=== PATIENT | male | born 1955 | race African-American/Black ===

== ENCOUNTER 2022-10-29 03:15 | Inpatient (IN) | payer MEDICARE, MEDICAID ==
[~2022-10-29] VITALS: Ht 185.4 cm; Wt 117.9 kg
[~2022-10-29 03:15] MED LIST: FURO-152 PO; GLIM2TAB30 PO; HYDR-4009 PO
[2022-10-29] MEDS ORDERED: CLINDAMYCIN 600 MG in DEXTROSE 5% WATER 50 ML IV ONE (06:45)
[2022-10-29] MEDS ORDERED: CLINDAMYCIN 600MG PREMIX 50 ML IV NR (07:15)
[2022-10-29 08:20] LABS: BASOPHILS % 0.3 % (0.0-2.0); EOSINOPHILS % 3.6 % (0.0-5.0); HEMATOCRIT. 26.6 % (42.0-52.0); HEMOGLOBIN. 8.5 g/dL (14.0-18.0); LYMPHOCYTES % 20.7 % (20.0-50.0); MEAN CORPUSCULAR HEMOGLOBIN 28.2 pg (28.0-32.0); MEAN CORPUSCULAR VOLUME 88.2 fL (80.0-94.0); MEAN PLATELET VOLUME 7.2 fl (7.4-10.4); MONOCYTES % 7.7 % (2.0-8.0); NEUTROPHILS % 67.7 % (40.0-76.0); PLATELET 414 x1000/uL (130-400); RED BLOOD CELL COUNT 3.02 mill/uL (4.7-6.1); RED CELL DISTRIBUTION WIDTH 16.6 % (11.6-14.6)
[2022-10-29 08:28] LABS: CHLORIDE 105 mEq/L (98-107)
[2022-10-29 08:30] LABS: INR 1.1; PROTHROMBIN TIME 12.1 sec (9.6-11.0)
[2022-10-29 08:55] LABS: CLARITY URINE TURBID (CLEAR); COLOR URINE DARK YELLOW (YELLOW); KETONES URINE NEGATIVE (NEGATIVE); LEUKOCYTE ESTERASE URINE 3+ (NEGATIVE); NITRITE URINE POSITIVE (NEGATIVE); OCCULT BLOOD URINE 3+ (NEGATIVE); PH URINE 5.5 (4.5-8.0); PROTEIN URINE 2+ (NEGATIVE); SPECIFIC GRAVITY URINE 1.015 (1.005-1.030)
[2022-10-29] MEDS ORDERED: HYDROCODONE/ACETAMINOPHEN 5/325MG TABLET PO PRN (09:30)
[2022-10-29] MEDS ORDERED: NALOXONE HCL 0.4MG/ML VIAL IV PRN (09:30)
[2022-10-29 14:00] VITALS: BP 145/84
[2022-10-29 16:00] VITALS: BP 110/53
[2022-10-29] MEDS ORDERED: POTASSIUM CHLORIDE 20MEQ TABLET SR PO NR (16:00)
[2022-10-29] MEDS ORDERED: ACETAMINOPHEN 325MG TABLET PO PRN ×2 (16:00)
[2022-10-29] MEDS ORDERED: DOCUSATE SODIUM 100MG CAPSULE PO PRN (16:00)
[2022-10-29] MEDS ORDERED: IPRATROPIUM/ALBUTEROL 0.5-3(2.5)MG/3ML NEB HHN PRN (16:00)
[2022-10-29] MEDS ORDERED: VANCOMYCIN 1G PREMIX 200 ML IV SCH (16:00)
[2022-10-29] MEDS ORDERED: CLONIDINE 0.1MG TABLET PO PRN (16:00)
[2022-10-29] MEDS: AMLODIPINE 10MG TABLET PO SCH (16:00)
[2022-10-29] MEDS ORDERED: HYDROCODONE/ACETAMINOPHEN 7.5/325MG TABLET PO PRN (16:00)
[2022-10-29] MEDS ORDERED: ONDANSETRON HCL 4MG/2ML INJ IV PRN (16:00)
[2022-10-29] MEDS ORDERED: GUAIFENESIN 200MG/10ML SUGAR FREE UDC PO PRN (16:00)
[2022-10-29] MEDS: HYDROCODONE/ACETAMINOPHEN 10/325MG TABLET PO PRN (16:42)
[2022-10-29] MEDS ORDERED: VANCOMYCIN 1500MG in DEXTROSE 5% WATER 250ML IV NR (18:00)
[2022-10-29] MEDS: ENOXAPARIN 30MG/0.3ML SYR SUBCUT SCH (18:00)
[2022-10-29 20:00] VITALS: BP 113/61
[2022-10-29] MEDS ORDERED: DEXTROSE 50% WATER 50ML SYRINGE IV PRN (20:15)
[2022-10-29] MEDS: FAMOTIDINE 20MG TABLET PO SCH (21:00)
[2022-10-29] MEDS: INSULIN LISPRO 100 UNITS/ML SUBCUT SCH (21:00)
[2022-10-29] MEDS: PIPERACILLIN/TAZOBACTAM 3.375 G in DEXTROSE 5% WATER 50 ML IV SCH (21:03)
[2022-10-29] MEDS: BLOOD SUGAR DIAGNOSTIC STRIP TEST SCH (21:04)
[2022-10-30] VITALS: BP 109/61
[2022-10-30] MEDS: PIPERACILLIN/TAZOBACTAM 3.375 G in DEXTROSE 5% WATER 50 ML IV SCH ×4 (00:01→22:00)
[2022-10-30] MEDS: HYDROCODONE/ACETAMINOPHEN 10/325MG TABLET PO PRN ×5 (01:18→22:05)
[2022-10-30 04:00] VITALS: BP 112/58
[2022-10-30] MEDS: ENOXAPARIN 30MG/0.3ML SYR SUBCUT SCH ×3 (06:00→17:35)
[2022-10-30 07:17] LABS: BASOPHILS % 0.3 % (0.0-2.0); HEMATOCRIT. 23.4 % (42.0-52.0); HEMOGLOBIN. 7.9 g/dL (14.0-18.0); MEAN CORPUSCULAR HEMOGLOBIN 29.1 pg (28.0-32.0); MEAN CORPUSCULAR VOLUME 85.8 fL (80.0-94.0); MEAN PLATELET VOLUME 7.4 fl (7.4-10.4); MONOCYTES % 8.2 % (2.0-8.0); NEUTROPHILS % 65.5 % (40.0-76.0); PLATELET 363 x1000/uL (130-400); RED BLOOD CELL COUNT 2.73 mill/uL (4.7-6.1); RED CELL DISTRIBUTION WIDTH 16.5 % (11.6-14.6)
[2022-10-30 07:31] LABS: CHLORIDE 106 mEq/L (98-107)
[2022-10-30 07:50] LABS: CREATINE KINASE 564 IU/L (39-308); HDL CHOLESTEROL 42 mg/dL (40-59); LDL CHOLESTEROL 75 mg/dL (5-100); T4 FREE 1.67 ng/dL (0.76-1.46)
[2022-10-30] MEDS: INSULIN LISPRO 100 UNITS/ML SUBCUT SCH ×4 (07:50→21:00)
[2022-10-30 08:00] VITALS: BP 89/53
[2022-10-30] MEDS ORDERED: VANCOMYCIN 750MG PREMIX 150 ML IV SCH (09:00)
[2022-10-30] MEDS: FAMOTIDINE 20MG TABLET PO SCH ×3 (09:00→21:22)
[2022-10-30] MEDS: AMLODIPINE 10MG TABLET PO SCH (09:00)
[2022-10-30] MEDS: BLOOD SUGAR DIAGNOSTIC STRIP TEST SCH ×4 (11:39→21:22)
[2022-10-30] MEDS: VANCOMYCIN 1G PREMIX 200 ML IV SCH (17:58)
[2022-10-31] MEDS: VANCOMYCIN 1G PREMIX 200 ML IV SCH ×2 (06:00→17:59)
[2022-10-31] MEDS: PIPERACILLIN/TAZOBACTAM 3.375 G in DEXTROSE 5% WATER 50 ML IV SCH ×2 (06:00→14:00)
[2022-10-31] MEDS: ENOXAPARIN 30MG/0.3ML SYR SUBCUT SCH ×2 (06:00→17:59)
[2022-10-31] MEDS ORDERED: BISACODYL 10MG SUPP PR PRN (06:30)
[2022-10-31] MEDS: HYDROCODONE/ACETAMINOPHEN 10/325MG TABLET PO PRN ×3 (06:45→13:48)
[2022-10-31] MEDS: BLOOD SUGAR DIAGNOSTIC STRIP TEST SCH ×3 (06:52→17:58)
[2022-10-31] MEDS: INSULIN LISPRO 100 UNITS/ML SUBCUT SCH ×3 (07:50→17:50)
[2022-10-31] MEDS: FAMOTIDINE 20MG TABLET PO SCH (09:00)
[2022-10-31] MEDS: AMLODIPINE 10MG TABLET PO SCH (09:00)
[2022-10-31] MEDS ORDERED: DOCUSATE SODIUM 100MG CAPSULE PO PRN (10:15)
[2022-10-31] MEDS ORDERED: LACTULOSE 20G/30ML UDC PO PRN (11:30)
[2022-10-31 12:00] VITALS: BP 120/68
[2022-10-31] MEDS ORDERED: LACTULOSE 20G/30ML UDC PO SCH (13:30)
[2022-10-31 16:00] VITALS: BP 152/69
[2022-10-31 17:20] VITALS: BP 152/69
[2022-10-31] MEDS ORDERED: ONDA4TAB50 MT (22:40)
[2022-10-31] MEDS ORDERED: TOPUD MT (22:40)
== END 2022-10-31 18:05 | disposition home health service (06) | DRG 871 ==
LOC: ER 03:15 → 6EST 06:42
PROVIDERS: ADMIT Hospitalist; ATTEND Hospitalist
DX: A41.9 Sepsis, unspecified organism (principal); E43 Unspecified severe protein-calorie malnutrition; G82.50 Quadriplegia, unspecified; L03.115 Cellulitis of right lower limb; N39.0 Urinary tract infection, site not specified; M86.8X6 Other osteomyelitis, lower leg; L03.116 Cellulitis of left lower limb; E11.69 Type 2 diabetes mellitus with other specified complication; Z60.2 Problems related to living alone; E11.51 Type 2 diabetes mellitus with diabetic peripheral angiopathy without gangrene; D64.9 Anemia, unspecified; I10 Essential (primary) hypertension; D75.839 Thrombocytosis, unspecified; I87.2 Venous insufficiency (chronic) (peripheral); L89.899 Pressure ulcer of other site, unspecified stage; E66.01 Morbid (severe) obesity due to excess calories; E87.6 Hypokalemia; Z68.39 Body mass index [BMI] 39.0-39.9, adult; Z74.01 Bed confinement status; Z79.899 Other long term (current) drug therapy
CPT/HCPCS: 36415; 71045; 80053; 80061; 81003; 82550; 82962; 83036; 84439; 84443; 85025; 87077; 87186; 93005; 97162; 99285; C1893; J1650; J2543; J3370; J3490; J7060

== ENCOUNTER 2022-10-31 19:30 | Emergency (ER) | payer MEDICARE, MEDICAID ==
[~2022-10-31] VITALS: Ht 185.4 cm; Wt 118.0 kg
[2022-10-31] MEDS ORDERED: ASPIRIN 325MG EC TABLET PO ONE (20:30)
[2022-10-31] MEDS ORDERED: NITROGLYCERIN 0.4MG/HR PATCH TOP ONE (20:30)
[2022-10-31] MEDS ORDERED: ACETAMINOPHEN 325MG TABLET PO ONE (20:30)
[2022-10-31] MEDS ORDERED: ONDA4TAB50 MT (22:40)
[2022-10-31] MEDS ORDERED: TOPUD MT (22:40)
[2022-11-02] MEDS ORDERED: ACETAMINOPHEN WITH CODEINE 300/30MG TABLET PO ONE (01:30)
[2022-11-02] MEDS ORDERED: ACETAMINOPHEN WITH CODEINE 300/30MG TABLET PO NR (02:00)
[2022-11-02 15:10] VITALS: BP 156/80
== END 2022-11-02 15:43 | disposition home or self-care (01) ==
LOC: ER 19:30
DX: R51.9 Headache, unspecified (principal); E11.9 Type 2 diabetes mellitus without complications
CPT/HCPCS: 71045; 99284

== ENCOUNTER 2022-12-10 08:09 | Inpatient (IN) | payer MEDICARE, MEDICAID ==
[~2022-12-10] VITALS: Ht 182.9 cm; Wt 119.3 kg
[~2022-12-10 08:09] MED LIST changes: +ONDA4TAB50 MT; +TOPUD MT
[2022-12-10] MEDS ORDERED: CEFTRIAXONE 1GM PREMIX 50 ML IV ONE (10:15)
[2022-12-10 10:32] LABS: CLARITY URINE TURBID (CLEAR); COLOR URINE ORANGE (YELLOW); KETONES URINE NEGATIVE (NEGATIVE); LEUKOCYTE ESTERASE URINE 3+ (NEGATIVE); NITRITE URINE NEGATIVE (NEGATIVE); OCCULT BLOOD URINE 3+ (NEGATIVE); PROTEIN URINE 4+ (NEGATIVE); SPECIFIC GRAVITY URINE 1.035 (1.005-1.030); UROBILINOGEN URINE 0.2 E.U./dL (0.2-1.0)
[2022-12-10 10:50] LABS: BASOPHILS % 0.2 % (0.0-2.0); HEMATOCRIT. 24.1 % (42.0-52.0); LYMPHOCYTES % 7.2 % (20.0-50.0); MEAN CORPUSCULAR HEMOGLOBIN 28.2 pg (28.0-32.0); MEAN CORPUSCULAR VOLUME 84.6 fL (80.0-94.0); MEAN PLATELET VOLUME 8.2 fl (7.4-10.4); NEUTROPHILS % 85.6 % (40.0-76.0); PLATELET 500 x1000/uL (130-400); RED BLOOD CELL COUNT 2.85 mill/uL (4.7-6.1); RED CELL DISTRIBUTION WIDTH 17.1 % (11.6-14.6)
[2022-12-10 11:00] LABS: INR 1.2; PROTHROMBIN TIME 12.4 sec (9.6-11.0)
[2022-12-10] MEDS ORDERED: MORPHINE SULFATE 4 MG/ML CPJ (NOT FOR IM USE) IV ONE (11:00)
[2022-12-10] MEDS ORDERED: HYDROCODONE/ACETAMINOPHEN 10/325MG TABLET PO ONE (12:15)
[2022-12-10 13:30] LABS: CHLORIDE 94 mEq/L (98-107)
[2022-12-10] MEDS ORDERED: CLONIDINE 0.1MG TABLET PO PRN (13:30)
[2022-12-10] MEDS ORDERED: IPRATROPIUM/ALBUTEROL 0.5-3(2.5)MG/3ML NEB HHN PRN (13:30)
[2022-12-10] MEDS ORDERED: DOCUSATE SODIUM 100MG CAPSULE PO PRN (13:30)
[2022-12-10] MEDS ORDERED: ONDANSETRON HCL 4MG/2ML INJ IV PRN (13:30)
[2022-12-10] MEDS ORDERED: HYDROCODONE/ACETAMINOPHEN 5/325MG TABLET PO PRN (13:30)
[2022-12-10] MEDS ORDERED: ACETAMINOPHEN 650MG/20.3ML UDC GT PRN (13:30)
[2022-12-10] MEDS ORDERED: GUAIFENESIN 200MG/10ML SUGAR FREE UDC PO PRN (13:30)
[2022-12-10] MEDS ORDERED: ACETAMINOPHEN 325MG TABLET PO PRN (13:30)
[2022-12-10] MEDS ORDERED: DEXTROSE 50% WATER 50ML SYRINGE IV PRN (13:30)
[2022-12-10] MEDS ORDERED: NALOXONE HCL 0.4MG/ML VIAL IV PRN (13:45)
[2022-12-10] MEDS ORDERED: PIPERACILLIN/TAZ 3.375G PREMIX 50 ML IV NR (13:45)
[2022-12-10] MEDS ORDERED: INSULIN REGULAR (HUMULIN R) 300UNITS/3ML VIAL IV NR (14:00)
[2022-12-10] MEDS ORDERED: DEXTROSE 50% WATER 50ML SYRINGE IV NR (14:00)
[2022-12-10] MEDS ORDERED: VANCOMYCIN 1G PREMIX 200 ML IV SCH (14:00)
[2022-12-10] MEDS ORDERED: CALCIUM GLUCONATE 100MG/ML 10ML VIAL IV NR (14:00)
[2022-12-10] MEDS ORDERED: SODIUM CHLORIDE 0.9% 1,000 ML IV ONE (14:00)
[2022-12-10] MEDS ORDERED: SODIUM BICARBONATE 8.4% 1 MEQ/ML 50ML SYR IV NR (14:15)
[2022-12-10 15:18] LABS: CREATINE KINASE 31 IU/L (39-308)
[2022-12-10] MEDS: INSULIN LISPRO 100 UNITS/ML SUBCUT SCH ×2 (18:20→21:00)
[2022-12-10] MEDS: BLOOD SUGAR DIAGNOSTIC STRIP TEST SCH ×2 (18:40→21:00)
[2022-12-10 20:00] VITALS: BP 116/75
[2022-12-10] MEDS ORDERED: PIPERACILLIN/TAZOBACTAM 3.375 G in DEXTROSE 5% WATER 50 ML IV SCH (22:00)
[2022-12-10] MEDS: HYDROCODONE/ACETAMINOPHEN 10/325MG TABLET PO PRN (22:14)
[2022-12-10 22:40] VITALS: BP 116/75
[2022-12-11] VITALS: BP 142/67
[2022-12-11] MEDS: PIPERACILLIN/TAZOBACTAM 3.375 G in DEXTROSE 5% WATER 50 ML IV SCH ×3 (03:07→21:55)
[2022-12-11] MEDS: HYDROCODONE/ACETAMINOPHEN 10/325MG TABLET PO PRN ×3 (05:42→23:30)
[2022-12-11] MEDS: BLOOD SUGAR DIAGNOSTIC STRIP TEST SCH ×4 (05:49→21:54)
[2022-12-11] MEDS: INSULIN LISPRO 100 UNITS/ML SUBCUT SCH ×4 (05:50→21:00)
[2022-12-11] MEDS: PANTOPRAZOLE 40MG DR TABLET PO SCH (06:40)
[2022-12-11 08:00] VITALS: BP 92/45
[2022-12-11] MEDS ORDERED: VANCOMYCIN 1G PREMIX 200 ML IV NR (11:00)
[2022-12-11 12:00] VITALS: BP 110/55
[2022-12-11 16:00] VITALS: BP 103/49
[2022-12-11 20:00] VITALS: BP 100/50
[2022-12-12] VITALS (7 sets, daily range): BP systolic 90–111; BP diastolic 51–62
[2022-12-12] MEDS: BLOOD SUGAR DIAGNOSTIC STRIP TEST SCH ×4 (05:50→22:31)
[2022-12-12] MEDS: PANTOPRAZOLE 40MG DR TABLET PO SCH (05:50)
[2022-12-12] MEDS: INSULIN LISPRO 100 UNITS/ML SUBCUT SCH ×4 (05:50→22:30)
[2022-12-12] MEDS: PIPERACILLIN/TAZOBACTAM 3.375 G in DEXTROSE 5% WATER 50 ML IV SCH ×3 (05:50→22:21)
[2022-12-12] MEDS: HYDROCODONE/ACETAMINOPHEN 10/325MG TABLET PO PRN ×2 (07:09→23:27)
[2022-12-12 07:46] LABS: BASOPHILS % 0.4 % (0.0-2.0); EOSINOPHILS % 2.7 % (0.0-5.0); LYMPHOCYTES % 20.1 % (20.0-50.0); MEAN CORPUSCULAR VOLUME 82.7 fL (80.0-94.0); MONOCYTES % 8.7 % (2.0-8.0); NEUTROPHILS % 68.1 % (40.0-76.0); PLATELET 419 x1000/uL (130-400); RED BLOOD CELL COUNT 2.33 mill/uL (4.7-6.1); RED CELL DISTRIBUTION WIDTH 16.6 % (11.6-14.6)
[2022-12-12 07:51] LABS: CHLORIDE 100 mEq/L (98-107)
[2022-12-12 08:10] LABS: HEMOGLOBIN. 6.5 g/dL (14.0-18.0)
[2022-12-12 08:11] LABS: HEMATOCRIT. 19.3 % (42.0-52.0)
[2022-12-12] MEDS: ASCORBIC ACID 250 MG TABLET PO SCH (09:56)
[2022-12-12] MEDS: ZINC SULFATE 220 MG ( 50 ) CAPSULE PO SCH (09:56)
[2022-12-12] MEDS: VANCOMYCIN 1.25GM PMX (XELLIA) 250 ML IV SCH (13:56)
[2022-12-12] MEDS ORDERED: LIDOCAINE HCL 1% 30ML VIAL (10MG/ML) ONE (14:02)
[2022-12-13] VITALS: BP 129/60
[2022-12-13] MEDS: VANCOMYCIN 1.25GM PMX (XELLIA) 250 ML IV SCH (00:56)
[2022-12-13 04:00] VITALS: BP 116/57
[2022-12-13] MEDS: INSULIN LISPRO 100 UNITS/ML SUBCUT SCH ×4 (06:05→21:00)
[2022-12-13] MEDS: BLOOD SUGAR DIAGNOSTIC STRIP TEST SCH ×4 (06:05→21:32)
[2022-12-13] MEDS: PIPERACILLIN/TAZOBACTAM 3.375 G in DEXTROSE 5% WATER 50 ML IV SCH ×3 (06:05→21:34)
[2022-12-13] MEDS: HYDROCODONE/ACETAMINOPHEN 10/325MG TABLET PO PRN ×2 (06:39→21:35)
[2022-12-13] MEDS: PANTOPRAZOLE 40MG DR TABLET PO SCH (06:40)
[2022-12-13 06:49] LABS: MEAN CORPUSCULAR HEMOGLOBIN 27.9 pg (28.0-32.0); MEAN CORPUSCULAR VOLUME 83.5 fL (80.0-94.0); PLATELET 440 x1000/uL (130-400); RED CELL DISTRIBUTION WIDTH 17.2 % (11.6-14.6)
[2022-12-13 06:59] LABS: HEMOGLOBIN 6.4 g/dL (14.0-18.0)
[2022-12-13 07:00] LABS: HEMATOCRIT 19.2 % (42.0-52.0)
[2022-12-13 07:16] LABS: CHLORIDE 101 mEq/L (98-107)
[2022-12-13 07:22] LABS: PHOSPHORUS 2.5 mg/dL (2.5-4.9)
[2022-12-13 08:00] VITALS: BP 126/73
[2022-12-13] MEDS: ASCORBIC ACID 250 MG TABLET PO SCH (09:00)
[2022-12-13] MEDS: ZINC SULFATE 220 MG ( 50 ) CAPSULE PO SCH (10:02)
[2022-12-13 12:00] VITALS: BP 130/70
[2022-12-13] MEDS: MAGNESIUM/ALUMINUM HYDROXIDE/SIMETHICONE 30ML UDC PO PRN (12:02)
[2022-12-13 16:00] VITALS: BP 124/58
[2022-12-13 20:00] VITALS: BP 105/59
[2022-12-14] VITALS (9 sets, daily range): BP systolic 96–148; BP diastolic 41–79
[2022-12-14] MEDS: HYDROCODONE/ACETAMINOPHEN 10/325MG TABLET PO PRN ×3 (01:37→17:50)
[2022-12-14] MEDS: BLOOD SUGAR DIAGNOSTIC STRIP TEST SCH ×4 (06:29→21:00)
[2022-12-14] MEDS: INSULIN LISPRO 100 UNITS/ML SUBCUT SCH ×3 (06:29→21:00)
[2022-12-14] MEDS: PANTOPRAZOLE 40MG DR TABLET PO SCH (07:04)
[2022-12-14] MEDS: PIPERACILLIN/TAZOBACTAM 3.375 G in DEXTROSE 5% WATER 50 ML IV SCH ×3 (07:04→22:00)
[2022-12-14] MEDS: ZINC SULFATE 220 MG ( 50 ) CAPSULE PO SCH (09:00)
[2022-12-14] MEDS: ASCORBIC ACID 250 MG TABLET PO SCH (09:47)
[2022-12-14 12:18] LABS: BASOPHILS % 0.4 % (0.0-2.0); EOSINOPHILS % 3.6 % (0.0-5.0); LYMPHOCYTES % 21.3 % (20.0-50.0); MEAN CORPUSCULAR HEMOGLOBIN 27.5 pg (28.0-32.0); MEAN CORPUSCULAR VOLUME 83.2 fL (80.0-94.0); MEAN PLATELET VOLUME 7.3 fl (7.4-10.4); NEUTROPHILS % 65.7 % (40.0-76.0); PLATELET 413 x1000/uL (130-400); RED CELL DISTRIBUTION WIDTH 16.4 % (11.6-14.6)
[2022-12-14 12:24] LABS: HEMATOCRIT. 19.1 % (42.0-52.0); HEMOGLOBIN. 6.3 g/dL (14.0-18.0)
[2022-12-14 12:26] LABS: CHLORIDE 102 mEq/L (98-107)
[2022-12-14] MEDS: MAGNESIUM/ALUMINUM HYDROXIDE/SIMETHICONE 30ML UDC PO PRN (17:50)
[2022-12-15] VITALS: BP 118/65
[2022-12-15 01:59] LABS: BASOPHILS % 0.6 % (0.0-2.0); EOSINOPHILS % 2.7 % (0.0-5.0); HEMOGLOBIN. 7.8 g/dL (14.0-18.0); MEAN CORPUSCULAR HEMOGLOBIN 27.6 pg (28.0-32.0); MEAN CORPUSCULAR VOLUME 84.9 fL (80.0-94.0); MEAN PLATELET VOLUME 7.4 fl (7.4-10.4); MONOCYTES % 7.4 % (2.0-8.0); NEUTROPHILS % 67.3 % (40.0-76.0); PLATELET 459 x1000/uL (130-400); RED BLOOD CELL COUNT 2.82 mill/uL (4.7-6.1); RED CELL DISTRIBUTION WIDTH 16.4 % (11.6-14.6)
[2022-12-15 02:06] LABS: INR 1.1; PROTHROMBIN TIME 11.9 sec (9.6-11.0)
[2022-12-15] MEDS: HYDROCODONE/ACETAMINOPHEN 10/325MG TABLET PO PRN (02:51)
[2022-12-15] MEDS: PIPERACILLIN/TAZOBACTAM 3.375 G in DEXTROSE 5% WATER 50 ML IV SCH ×2 (06:00→16:08)
[2022-12-15] MEDS: BLOOD SUGAR DIAGNOSTIC STRIP TEST SCH ×3 (06:40→16:40)
[2022-12-15] MEDS: PANTOPRAZOLE 40MG DR TABLET PO SCH (06:40)
[2022-12-15] MEDS: INSULIN LISPRO 100 UNITS/ML SUBCUT SCH ×3 (07:10→17:10)
[2022-12-15 08:00] VITALS: BP 115/70
[2022-12-15] MEDS: ZINC SULFATE 220 MG ( 50 ) CAPSULE PO SCH (09:00)
[2022-12-15] MEDS: ASCORBIC ACID 250 MG TABLET PO SCH (09:00)
[2022-12-15 12:00] VITALS: BP 124/104
[2022-12-15 16:00] VITALS: BP 125/74
[2022-12-15 17:39] VITALS: BP 125/74
[2022-12-15] MEDS ORDERED: SULFAMETHOXAZOLE/TRIMETHOPRIM 400/80MG TAB PO SCH (21:00)
== END 2022-12-15 18:45 | disposition home health service (06) | DRG 871 ==
LOC: ER 08:09 → 7EST 12:17 → EDBEDREQ 12:24
PROVIDERS: ADMIT Hospitalist; ATTEND Hospitalist
PROC: 05HY33Z Insertion of Infusion Device into Upper Vein, Percutaneous Approach (ICD-10-PCS; 2022-12-13)
PROC: B54MZZA Ultrasonography of Right Upper Extremity Veins, Guidance (ICD-10-PCS; 2022-12-13)
PROC: 30233N1 Transfusion of Nonautologous Red Blood Cells into Peripheral Vein, Percutaneous Approach (ICD-10-PCS; principal; 2022-12-14)
DX: A41.2 Sepsis due to unspecified staphylococcus (principal); E43 Unspecified severe protein-calorie malnutrition; D62 Acute posthemorrhagic anemia; E87.1 Hypo-osmolality and hyponatremia; G82.20 Paraplegia, unspecified; N13.8 Other obstructive and reflux uropathy; L03.115 Cellulitis of right lower limb; L03.116 Cellulitis of left lower limb; N17.9 Acute kidney failure, unspecified; Z20.822 Contact with and (suspected) exposure to COVID-19; N30.90 Cystitis, unspecified without hematuria; E11.9 Type 2 diabetes mellitus without complications; Z68.33 Body mass index [BMI] 33.0-33.9, adult; D75.839 Thrombocytosis, unspecified; E87.5 Hyperkalemia; E66.9 Obesity, unspecified; E11.42 Type 2 diabetes mellitus with diabetic polyneuropathy; E11.51 Type 2 diabetes mellitus with diabetic peripheral angiopathy without gangrene; B96.89 Other specified bacterial agents as the cause of diseases classified elsewhere; N28.1 Cyst of kidney, acquired; N30.91 Cystitis, unspecified with hematuria; Z74.01 Bed confinement status; Z87.440 Personal history of urinary (tract) infections
CPT/HCPCS: 36415; 36573; 74176; 80048; 80053; 80202; 81003; 82550; 82962; 83036; 83605; 83735; 84100; 84134; 84145; 84153; 84484; 85025; 85027; 86850; 86900; 86920; 87077; 87186; 93005; 93970; 97161; 99285; C1725; J0610; J0696; J1815; J2405; J2543; J3370; J3490; J7060; P9016; G0103

== ENCOUNTER 2023-02-24 19:25 | Emergency (ER) | payer MEDICARE, MEDICAID ==
[~2023-02-24] VITALS: Ht 182.9 cm; Wt 106.0 kg
[2023-02-24 19:31] VITALS: TEMP 98.8; O2SAT 97
[2023-02-24 21:14] LABS: CLARITY URINE CLOUDY (CLEAR); COLOR URINE YELLOW (YELLOW); GLUCOSE URINE TRACE (NEGATIVE); KETONES URINE NEGATIVE (NEGATIVE); LEUKOCYTE ESTERASE URINE 3+ (NEGATIVE); NITRITE URINE POSITIVE (NEGATIVE); OCCULT BLOOD URINE TRACE (NEGATIVE); PH URINE 5.5 (4.5-8.0); PROTEIN URINE TRACE (NEGATIVE); SPECIFIC GRAVITY URINE 1.016 (1.005-1.030)
[2023-02-24 21:36] LABS: BACTERIA URINE 4+; SQUAMOUS EPITHELIAL CELL URINE RARE /lpf (RARE/1+)
[2023-02-24 21:37] LABS: RBC URINE 0-2 /hpf (0-2); WBC URINE TNTC /hpf (0-2)
[2023-02-24] MEDS ORDERED: CEFD300C3 MT (21:57)
[2023-02-24] MEDS ORDERED: CEFTRIAXONE SODIUM 1 G/VIAL IM ONE (22:00)
[2023-02-25 01:37] VITALS: BP 147/73; PULSE 81; RESP 12
== END 2023-02-25 01:41 | disposition home or self-care (01) ==
LOC: ER 19:25
DX: N39.0 Urinary tract infection, site not specified (principal); E11.9 Type 2 diabetes mellitus without complications
CPT/HCPCS: 99284; 81003; 87086; 87186; 87077; 51702; 96372; J0696; A4315